=== PATIENT | female | born 1945 | race African-American/Black ===

== ENCOUNTER → 2017-11-09 | Outpatient (CLI) | payer OTHER ==
[~2017-11-09] MED LIST: AMLO10TA3 PO; ENAL10TA88 PO; GLC/500 PO; HYZ/10015 PO; MBC75 PO; SIMV-151 OP; TNR50 PO
[2017-11-09 17:25] LABS: ALBUMIN 3.8 gm/dl (3.4-5.0); ALKALINE PHOSPHATASE 70 U/L (45-117); ALT/SGPT 15 U/L (12-78); AST/SGOT 21 U/L (15-37); BLOOD UREA NITROGEN 14 mg/dl (7-18); CALCIUM 8.8 mg/dl (8.5-10.1); CARBON DIOXIDE 27 mmol/L (21-32); CHOLESTEROL 138 mg/dl (0-200); CREATININE 0.69 mg/dl (0.60-1.20); GLUCOSE 78 mg/dl (70-99); LDL CHOLESTEROL CALCULATED 61 mg/dl; POTASSIUM 3.3 mmol/L (3.5-5.1); SODIUM 139 mmol/L (136-145); TOTAL PROTEIN 7.4 gm/dl (6.4-8.2)
[2017-11-09 20:01] LABS: BASO % 0.2 %; BASO ABS # 0.01 K/uL (0-0.2); EOS % 2.9 %; EOS ABS # 0.16 K/uL (0-0.5); HEMOGLOBIN 11.3 g/dL (12.0-16.0); IG# 0.01 K/uL (0.00-0.02); LYMPH % 29.7 %; LYMPH ABS # 1.63 K/uL (1.2-3.4); MEAN CELL VOLUME 92.6 fL (80-100); MEAN CORPUSCULAR HEMOGLOBIN 29.9 pg (25-34); MEAN CORPUSCULAR HGB CONC 32.3 g/dl (32-36); MONO % 6.9 %; MONO ABS # 0.38 K/uL (0.11-0.59); NEUT % 60.1 %; PLATELET COUNT 195 K/uL (130-400); RED CELL DISTRIBUTION WIDTH SD 46.8 fL (36.4-46.3); WHITE BLOOD COUNT 5.49 K/uL (4.8-10.8)
[2017-11-10 06:43] LABS: HEMOGLOBIN A1C 6.1 % (4.5-5.6)
== END | disposition home or self-care (01) ==
LOC: C.LABBC 14:38
PROVIDERS: ATTEND Physician Assistant Medical
DX: M19.90 Unspecified osteoarthritis, unspecified site (principal); E11.9 Type 2 diabetes mellitus without complications; E78.5 Hyperlipidemia, unspecified; I10 Essential (primary) hypertension

== ENCOUNTER → 2017-11-15 | Outpatient (CLI) | payer OTHER ==
--- NOTE | 2017-11-15 16:01 | DIAGNOSTIC IMAGING REPORT ---
SOFT TISS HEAD/NECK-THYROID CLINICAL HISTORY: 72 years-old Female with NECK PAIN. Acute bilateral neck pain COMPARISON: None available TECHNIQUE: Multiple real time sonographic images of the thyroid were obtained accessing bradford scale appearance and color doppler flow. FINDINGS: MEASUREMENTS: Right lobe: 4.9 x 1.6 x 2.2 cm Left lobe: 5.6 x 1.4 x 2.2 cm Isthmus: 0.4 cm PARENCHYMA: The thyroid parenchymal echotexture is diffusely heterogeneous. NODULES: Multiple thyroid nodules are seen bilaterally in addition to suggest a colloid cysts. Spongiform circumscribed ovoid nodule of the lower pole right thyroid measures up to 1.2 x 1.2 x 1.1 cm. Hypoechoic circumscribed solid nodule of the mid pole left thyroid measures 0.9 x 0.6 x 1.0 cm. No focal abnormality seen within the area of clinical concern about the right neck. IMPRESSION: Multinodular thyroid and colloid cysts without any nodules meeting diagnostic criteria for tissue sampling. Continued follow-up recommended. The above report was generated using voice recognition software. It may contain grammatical, syntax or spelling errors. Electronically signed by: Cesar Aguilar M.D. 11/15/2017 4:00 PM Dictated Date/Time: 11/15/2017 3:53 PM
== END | disposition home or self-care (01) ==
LOC: C.ULTRBC 15:23
PROVIDERS: ATTEND Physician Assistant Medical
DX: E04.2 Nontoxic multinodular goiter (principal); M54.2 Cervicalgia

== ENCOUNTER 2019-12-03 05:03 | Observation (INO) ==
--- NOTE | 2019-11-04 16:28 | PAT Medication Instructions ---
Medication Instructions Date of Service November 04, 2019 Home Medications Medication Instructions Recorded simvastatin 20 mg tablet 20 mg PO HS #90 tab 04/16/19 enalapril maleate 10 mg tablet 10 mg PO BID #180 tab 07/16/19 aspirin 81 mg tablet,delayed release 81 mg PO PM metformin 500 mg tablet 500 mg PO TID woehmlep-rum-iesng acid 0.4 mg-lycopene 300 mcg-lutein 250 mcg tablet 1 tab PO QAM simvastatin 20 mg tablet 20 mg PO HS enalapril maleate 10 mg tablet 10 mg PO BID amlodipine 10 mg PO QAM atenolol-chlorthalidone 1 tab PO QAM STOP taking 2 weeks before surgery If surgery is within 2 weeks, stop taking as soon as possible. lvouazet-exm-shgsf acid 0.4 mg-lycopene 300 mcg-lutein 250 mcg tablet 1 tab PO QAM DO NOT take the morning of surgery metformin 500 mg tablet 500 mg PO TID enalapril maleate 10 mg tablet 10 mg PO BID Take morning of surgery With a small sip of water, OTHERWISE NOTHING TO EAT OR DRINK AFTER MIDNIGHT: amlodipine 10 mg PO QAM atenolol-chlorthalidone 1 tab PO QAM Take evening before surgery aspirin 81 mg tablet,delayed release 81 mg PO PM metformin 500 mg tablet 500 mg PO TID simvastatin 20 mg tablet 20 mg PO HS enalapril maleate 10 mg tablet 10 mg PO BID Other Notes If you have any questions please call us at [phone] or [phone] or [phone] or [phone]
--- NOTE | 2019-11-05 08:58 | Anesthesiology Consultation ---
Date of Service November 05, 2019 Assessment & Plan (1) Encounter for pre-operative examination: COVID Status: As of 11/04 assessment, patient denies travel to endemic area, known exposure/sick contacts, or symptoms of COVID19. Patient instructed to follow strict social distancing guidelines, wear a mask in public and avoid travel for 14 days prior to surgery. Preoperative COVID19 testing to be completed prior to surgery (11/27). Patient made aware to self-isolate as much as possible between COVID testing and surgery. Patient noted to be in new-onset Afib at [facility]. Rate controlled, patient taking ASA 81mg. Patient asymptomatic. Spoke to PCP office, they can see her at 1215 today. Patient amenable to this plan (she and her daughter did not want to go to the ER). EKG done at PCP office reportedly showed possible Wenkebach rhythm. Patient referred to cardiology (per office note from Ainsley Asif PA-C). Surgeon's office notified of this. Chart Review Chart Review: Acceptable Risk for Surgery (pending cardiology follow-up for new onset arrhythmia) and Patient seen in Pre Admission Testing Teaching & Discussion Instructed NPO after midnight before surgery, except medications with 15 cc of water. Medication instructions provided according to the [facility] guidelines. History Surgery Operation Date: 12/03/19 07:00 Proposed Procedures p Right Total Knee Arthroplasty - William Woodson MD Height/Weight Height: 5 ft 2 in Weight: 89 kg Allergies Allergy/AdvReac Type Severity Reaction Status Date / Time No Known Drug Allergies Allergy Unknown NONE Unverified 11/05/19 12:27 Medications Home Medications Medication Instructions Recorded Confirmed Last Taken aspirin 81 mg tablet,delayed 81 mg PO PM tab 03/11/19 11/05/19 Unknown release metformin 500 mg tablet 500 mg PO TID tab 03/11/19 11/05/19 Unknown ijzmtlat-chx-itagh acid 0.4 1 tab PO QAM 03/15/19 11/05/19 Unknown mg-lycopene 300 mcg-lutein 250 mcg tablet simvastatin 20 mg tablet 20 mg PO HS #90 tab 04/16/19 11/05/19 Unknown enalapril maleate 10 mg tablet 10 mg PO BID #180 tab 07/16/19 11/05/19 Unknown amlodipine 10 mg PO QAM 10/29/19 11/05/19 Unknown atenolol-chlorthalidone 1 tab PO QAM 10/29/19 11/05/19 Unknown Past Medical History Medical History (Updated 11/05/19 @ 16:18 by Evan Murrieta) Arrhythmia Atrial fibrillation, new onset, noted on pre-op EKG at [facility]. Rate controlled, pt asymptomatic and on ASA 81mg and BB chronically. Arranged for pt to be seen at PCP office same-day (11/04). EKG done at PCP office showing possible Wenchebach rhythm. Referred to cardio. Carpal tunnel syndrome Chronic anemia Diabetes mellitus, type 2 Gout Hearing deficit Hyperlipidemia Hypertension Osteoarthritis Thyroid nodule just monitoring Exercise / Class Metabolic Activity III < 4 Walking/Shop/Light housework (Does not do stairs, denies CP or SOB with ambulation, using cane) Past Family History Family History Mother Diabetes Hypertension Kidney disease Father Hypertension Kidney stones Stomach cancer Myocardial infarction Aunt Myocardial infarction Denies family history of Ovarian cancer Breast cancer Lung cancer Past Surgical History Surgical History History of colonoscopy History of hernia repair Past Anesthesia History No Hx of Anesthesia Complications and No Family Hx of Anesthesia Complications History of PONV No Hx of PONV and Hx of Motion Sickness Social History Smoking Status: Never smoker Do You Dip or Chew Tobacco: No Hx Alcohol Use: No Hx Substance Use: No substance use type: does not use Review of Systems Pt denies any recent chest pain, shortness of breath, palpitations, cough, fever or URI. Physical Exam Vital Signs BP: 121/77 P: 69bpm SPO2: 97% RA T: 98.5 F R: 16 ENMT Mouth: + dentures (partial lower); no chipped teeth and no loose teeth Thyromental Distance: > or= 3.5 Finger Breadths (4) Mallampati Class: II Neck normal visual inspection; neck extension not limited Respiratory normal respiratory effort Auscultation: lungs clear to auscultation bilaterally Cardiovascular Rate/Rhythm: regular rate; + abnormal rhythm (irregularly irregular) Heart Sounds: no murmur Vessels: no carotid bruit Extremities: + edema (mild non-pitting, pt reports at baseline) Testing Laboratory Results 11/05/19 09:30 11/05/19 09:30 PT 10.9 Seconds (9.0-12.0) 11/05/19 09:30 INR 1.0 (0.9-1.1) 11/05/19 09:30 APTT 27.3 Seconds (21.0-31.0) 11/05/19 09:30 Hemoglobin A1c 5.7 % (4.5-5.6) H 11/05/19 09:30 Blood Type O Positive 11/05/19 09:30 Antibody Screen NEGATIVE 11/05/19 09:30 Chronic anemia, baseline 10-11. Electrocardiogram Date: 11/05/19 Findings: + AFIB @ (73bpm with occ aberrant conduction) NSTWA. Chest X-Ray Date: 11/05/19 Findings: + NAD
--- NOTE | 2019-11-05 10:16 | XRay Report ---
XR chest Pre-admission PA/Lat CLINICAL HISTORY: pat COMPARISON STUDY: No previous studies for comparison. FINDINGS: The bones soft tissues and hemidiaphragms are normal. The cardiomediastinal silhouette is n ormal. The lungs are clear. The pulmonary vasculature is normal. IMPRESSION: Negative chest. ACT 112: Negative or not required by law. The above report was generated using voice recognition software. It may contain grammatical, syntax or spelling errors. Electronically signed by: Jorge A Morris M.D. 11/05/2019 10:15 AM
[2019-11-05 11:10] LABS: Basophils # (auto) 0.02 K/uL (0-0.2); Basophils % (auto) 0.5 %; Eosinophils # (auto) 0.17 K/uL (0-0.5); Eosinophils % (auto) 3.9 %; Hematocrit (blood only) 32.9 % (37-47); Hemoglobin 10.4 g/dL (12.0-16.0); Immature Granulocytes # (auto) 0.01 K/uL (0.00-0.02); Immature Granulocytes % (auto) 0.2 %; Lymphocytes # (auto) 0.99 K/uL (1.2-3.4); Lymphocytes % (auto) 22.6 %; Mean Corpuscular Hemoglobin 29.5 pg (25-34); Mean Corpuscular Hgb Conc 31.6 g/dL (32-36); Mean Corpuscular Volume 93.2 fL (80-100); Monocytes # (auto) 0.48 K/uL (0.11-0.59); Neutrophils # (auto) 2.71 K/uL (1.4-6.5); Neutrophils % (auto) 61.8 %; Platelet Count 228 K/uL (130-400); RDW Coefficient of Variation 14.5 % (11.5-14.5); RDW Standard Deviation 48.8 fL (36.4-46.3); Red Blood Count 3.53 M/uL (4.2-5.4); White Blood Count 4.38 K/uL (4.8-10.8)
[2019-11-05 11:18] LABS: BUN Creatinine Ratio 26.3 (10-20); Calcium 9.4 mg/dl (8.5-10.1); Creatinine Clr Calc Pharmacy 58.6 ml/min; Est GFR (African American) 76.6; Est GFR (Non-African American) 66.1; Partial Thromboplastin Time 27.3 Seconds (21.0-31.0); Potassium 3.8 mmol/L (3.5-5.1); Prothrombin Time 10.9 Seconds (9.0-12.0)
[2019-11-05 11:54] LABS: Estimated Average Glucose 117 mg/dl; Hemoglobin A1C 5.7 % (4.5-5.6)
--- NOTE | 2019-11-05 15:35 | Electrocardiogram Report ---
Test Reason : Blood Pressure : / mmHG Vent. Rate : 073 BPM Atrial Rate : 073 BPM P-R Int : 000 ms QRS Dur : 100 ms QT Int : 390 ms P-R-T Axes : 000 060 -49 degrees QTc Int : 429 ms Atrial fibrillation with occasional aberrant conduction Nonspecific T wave abnormality Abnormal ECG No previous ECGs available Confirmed by Aldair Cardozo ([id number]) on 11/05/2019 3:34:48 PM Referred By: William Woodson Confirmed By:Jimmy Cardozo
--- NOTE | 2019-11-30 09:50 | History and Physical Report ---
DATE OF ADMISSION: 12/03/2019 CHIEF COMPLAINT: Right knee pain, discomfort and instability. HISTORY OF PRESENT ILLNESS: The patient is a 74-year-old black female from [place], who presents for surgical treatment of her right knee. She has got about a 15-year history of gradually increasing right knee pain, discomfort and deformity and instability. She has been through extensive conservative treatment in the past which has become less successful. She has been using a cane to get around due to pain as well as instability issues. Her knee hurts all the time. She can walk barely a block. She would like to consider and have her knee replaced. Of note, in her preoperative workup, she was in AFib. She underwent a cardiac evaluation with a dobutamine stress echo which was negative. They are recommending rate controlled management of her AFib PAST MEDICAL HISTORY: 1. Diabetes. 2. Elevated cholesterol. 3. Hypertension. 4. Hiatal hernia. 5. Obesity with BMI of 36. 6. There is atrial fibrillation, new onset. PAST SURGICAL HISTORY: Include hernia repair. ALLERGIES: None. CURRENT MEDICINES: Include: 1. Amlodipine 10 mg a day. 2. Eliquis 5 mg twice a day. 3. Aspirin 81 mg a day. 4. Atenolol/chlorthalidone. 5. Enalapril. 6. Metformin. 7. Multivitamin. 8. Simvastatin. SOCIAL HISTORY: A 74-year-old female. She is moved from [place] about 12 years ago. Four children. Does not drink. Does not smoke. FAMILY HISTORY: Significant for diabetes and prostate cancer. REVIEW OF SYSTEMS: Significant for diabetes. It is pretty well controlled with hemoglobin A1c of 5.7. Denies any chest pain or shortness of breath. No history of DVT or PE. No known bleeding problems. No dysuria. PHYSICAL EXAMINATION: GENERAL: Shows a pleasant elderly female. Looks to be in reasonably good health. HEENT: Benign. NECK: Supple, no lymphadenopathy. LUNGS: Clear to auscultation. HEART: Has a regular rate and rhythm. ABDOMEN: Soft, nontender, nondistended. EXTREMITIES: Grossly neurovascularly intact except as follows. Examination of the right knee reveals the patient walks with use of a cane. She walks with a fairly slow gait and a significant valgus alignment to her knee, which is increased with weightbearing. Range of motion is about 5 degrees, show full extension to 110 degrees of flexion. There is no instability. No pain with hip motion. X-RAYS: X-rays of the right knee from previous are reviewed. Shows advanced right knee DJD. She has got complete loss of her lateral joint space. She has got diffuse osteopenia. She has got subchondral sclerosis. ASSESSMENT: A 74-year-old female diabetic patient with multiple medical comorbidities including diabetes, hypertension, elevated cholesterol, mild obesity, new onset atrial fibrillation rate controlled with advanced right knee degenerative joint disease. She has failed conservative treatment and markedly limited by her disease and would like to have this fixed. PLAN: We are going to take her to the operating room and do right total knee replacement. The risks and benefits of this procedure were explained to the patient including but not limited to DVT, PE, , infection, neurological injury, vascular injury, bleeding problem, pain, limited range of motion, stiffness, failure to relieve her symptoms, incomplete relief of symptoms, need for further surgery in future, fracture, leg length inequality, nerve palsy, and persistent pain. The patient understands and desires to proceed. Informed consent was obtained. She has been seen by cardiology and evaluated and cleared. She had negative dobutamine stress echo. Her atrial fibrillation is on rate control and she is on Eliquis. She knows to stop her Eliquis 3 days preop. We will hold the metformin the morning of surgery. She should take her atenolol. She is planning to be discharged to home using [facility] home health program and some family and friends.
[2019-12-03] MEDS ORDERED: LR 500ML BOLUS, THEN 15ML/HR IV SCH (06:00)
[2019-12-03] MEDS ORDERED: FAMOTIDINE 20 MG TAB PO SCH (06:00)
[2019-12-03] MEDS ORDERED: METOCLOPRAMIDE HCL 10 MG TABLET PO SCH (06:00)
[2019-12-03] MEDS ORDERED: BUPIVACAINE LIPOSOME/PF 266 MG, BUPIVACAINE/EPINEPHRINE 50 ML, SODIUM CHLORIDE 0.9% 30 ... INFIL SCH (06:00)
[2019-12-03] MEDS ORDERED: TRANEXAMIC ACID 1,000 MG **IV Pre-op IV SCH (06:00)
[2019-12-03] MEDS ORDERED: ACETAMINOPHEN 500 MG TAB PO SCH (06:00)
[2019-12-03] MEDS ORDERED: CEFAZOLIN 2000MG 2,000 MG/15 ML SYR IV SCH (06:00)
[2019-12-03] MEDS ORDERED: LR 60ML/HR IV SCH (06:00)
[2019-12-03] MEDS ORDERED: GABAPENTIN 300 MG CAP PO SCH (06:00)
[2019-12-03] MEDS ORDERED: EPINEPHrine INJ 1 MG/ML AMP ONE (06:20)
[2019-12-03] MEDS ORDERED: ROPIVACAINE 0.5% 5 MG/ML 30 ML VIAL ONE (06:20)
[2019-12-03] MEDS ORDERED: BUPIVACAINE 0.5 % 5 MG/1 ML PF 10ML VIAL ONE (06:20)
[2019-12-03] MEDS ORDERED: BUPIVACAINE/EPINEPHRINE 0.25% 1:200,000 30 ML VIAL ONE (06:35)
[2019-12-03] MEDS ORDERED: BUPIVACAINE LIPOSOME 1.3% 266 MG/20 ML VIAL ONE (06:36)
[2019-12-03] MEDS ORDERED: SODIUM CHLORIDE 0.9% PF 50 ML VIAL ONE (06:36)
[2019-12-03] MEDS ORDERED: BACITRACIN INJ 50,000 UNIT VIAL ONE (06:36)
[2019-12-03] MEDS ORDERED: PROPOFOL IV EMULSION 10 MG/ML 20 ML VIAL IV ONE ×2 (06:42→07:37)
[2019-12-03] MEDS ORDERED: LIDOCAINE HCL 2% 2 ML VIAL/AMP(20MG/ML) INFIL ONE (06:42)
[2019-12-03] MEDS ORDERED: MIDAZOLAM HCL 1 MG/ML 2ML VIAL ONE (06:43)
[2019-12-03] MEDS ORDERED: fentaNYL citrate 100 MCG/2 ML VIAL ONE (06:43)
--- NOTE | 2019-12-03 06:45 | History & Physical Bridge Note ---
Date of Service December 03, 2019 History & Physical Bridge Note I have examined the patient, reviewed the History & Physical and in the interval since the performance of the History & Physical I have noted the following changes of clinical significance: no changes noted
[2019-12-03] MEDS ORDERED: fentaNYL citrate 100 MCG/2 ML VIAL IV PRN (06:49)
[2019-12-03] MEDS ORDERED: HYDROmorphone INJ 1 MG/ML SYRINGE IV PRN (06:49)
[2019-12-03] MEDS ORDERED: ATROPINE SULFATE 0.1 MG/ML 10ML SYR IV PRN (06:49)
[2019-12-03] MEDS ORDERED: PHENYLEPHRINE 100MCG/ML 5ML SYR IV PRN (06:49)
[2019-12-03] MEDS ORDERED: LABETALOL HCL IV 5 MG/ML 20ML IV PRN (06:49)
[2019-12-03] MEDS ORDERED: MEPERIDINE HCL 25 MG/ML CARP/VIAL IV PRN (06:49)
[2019-12-03] MEDS ORDERED: ePHEDrine sulfate 50 MG/ML AMP IV PRN (06:49)
[2019-12-03] MEDS ORDERED: ONDANSETRON INJ 2 MG/ML 2 ML VIAL IV PRN ×2 (06:49→10:47)
[2019-12-03] MEDS ORDERED: ONDANSETRON INJ 2 MG/ML 2 ML VIAL ONE (07:20)
--- NOTE | 2019-12-03 09:21 | Post Operative Brief Note ---
PG Immediate Post Op with CF Date of Surgery December 03, 2019 Pre & Post Diagnosis Operation Date: 12/03/19 07:00 Pre-Op Diagnosis: Right Knee Degenerative Joint Disease, Knee Pain Post-Op Diagnosis: Right Knee Degenerative Joint Disease, Knee Pain I identified the patient and participated in the time-out.: Yes Procedure Operation Date: 12/03/19 07:00 Actual Procedures p Right Total Knee Arthroplasty(Right) - William Woodson MD Surgeon William Woodson MD Oral Surgeon Shahid Lester, PAC Estimated Blood Loss 50 Findings Consistent with Post-Op Diagnosis Fluids 1000 cc Specimens Specimen Description: Permanent specimen A: right knee bone and tissue Drains Ryan Catheter (16fr ryan catheter placed without difficulty, ryan demonstrates clear yellow urine. Output measured and recorded by anesthesia.) Anesthesia Type Spinal MAC Complications none Disposition Accompanied Patient To Recovery: Yes Disposition: Recovery Room
--- NOTE | 2019-12-03 09:47 | Operative Report ---
Post Operative Report Pre & Post Diagnosis Operation Date: 12/03/19 07:00 Pre-Op Diagnosis: Right Knee Degenerative Joint Disease, Knee Pain Post-Op Diagnosis: Right Knee Degenerative Joint Disease, Knee Pain I identified the patient and participated in the time-out.: Yes Procedure Operation Date: 12/03/19 07:00 Actual Procedures p Right Total Knee Arthroplasty(Right) - William Woodson MD Surgeon William Woodson MD Assembly Line Upholsterer Shahid Lester, PAC Estimated Blood Loss 50 Findings Consistent with Post-Op Diagnosis Operative findings revealed advanced right knee DJD with extensive grade 4 ctby-ke-cdch disease in all 3 compartments. She has severe valgus deformity to her knee with extensive wear of the lateral tibial plateau. Moderate-sized joint effusion. Diffuse osteopenia. Fluids 1000 cc. Specimens Right knee sent for pathology. Drains None. Anesthesia Type Spinal MAC Complications none Disposition Disposition: Recovery Room Indications Patient is a 74-year-old female who is had about a 10 to 15-year history of progressively increasing right knee pain discomfort deformity. She been through extensive conservative treatment without adequate relief over the past 10 years. She has having difficulty walking at all. X-rays show advanced right knee DJD. She elected proceed with surgical treatment. Description of Procedure Operative implants consist of: 1. Biomet Vanguard size 65 right posterior by femoral component. 2. Biomet size 71 SS K tibial tray with an 80 x 10 mm stem. 3. 16 mm Po stabilized polyethylene plus insert. 4. 31 x 8 all poly-patella. Patient was taken to the operating identified placed on the operating table supine position protectors were properly padded IV antibiotics arrived by anesthesia team. Spinal anesthetic been implemented holding area. Thakur catheter was placed in sterile fashion. Right factor was then placed in the right lower extremities and prepped and draped in usual sterile fashion. Nupathe right leg was elevated exsanguinated with use of an Esmarch interspace at 300 mmHg. An anterior part of the right knee was informed to longitudinal incision centered over the patella. Sharp dissection was got through subcutaneous tissue down to level the extensor mechanism. A medial parapatellar arthrotomy incision was made. Some subperiosteal dissection was carried out medially. The fat pad was dissected beneath patella tendon. The lateral patellofemoral ligament was released. Patella was subluxated laterally and the knee was flexed. The osteophytes were taken off the distal femur. The ACL and PCL were then released in the distal femur the tibia subluxate anteriorly. The external tibial alignment jig was then placed in the interface the tibia and adjusted 12 mm medially. Proximal tibial cut was made essentially flush with the most deficient aspect of the lateral tibial plateau. The tibia was then sized to a size 71. Attention drawn the femur. The distal femur 7 the sharp drill bit intramedullary canal was suction. A right 5 degree valgus cutting guide was placed but this femoral cutting block was pinned in place. The distal femoral cut was made to take an additional 3 mm of bone off distal femur. The knee was brought out in extension. I then did release the IT band in the posterior lateral capsule in order to equalize the extension gap. Great care was taken throughout the procedure protect the peroneal nerve at all times. The knee was then flexed. The knee was then sized to a size 65. The AP cutting block was pinned parallel to the epicondylar axis which was 5 degrees of external rotation. Anterior cut, anterior chamfer, posterior cut, posterior chamfer cuts were made. Box cutting guide was placed in just slight lateral and the box cut was made. The knee was flexed. The remnants of the medial lateral menisci were excised. The osteophytes were taken off the posterior aspect of the femur. I did release the popliteus as well in order to equalize the flexion gap. Once again great care was taken to protect the peroneal nerve at all times. The femoral component was then placed. The tibial tray was pinned in maximum external rotation and the drill was used to enter the tibial canal. Then reamed up to a size 10 and 10 reamer. I then used the punch for the SSK stem. The trial implant was assembled in place. It fit nicely. I then trialed the knee and the 16mm insert fit most appropriately. She did have quite a bit of laxity in pretty poor quality tissue so I did use a PS plus insert in order to maximize her stability. We also placed the stem in the tibia as a result of this need for increased ability and her diffuse osteope madai. Attention then drawn the patella. Patella cleaned of all soft tissues. Patella thickness measured 23 mm in thickness was cut down to 14. Was sized to a size 31 patella. Locals were drilled for 31 patella. Lateral osteophyte is moved. Patella button was placed. Knee was taken through range of motion patella tracked nicely with no thumbs test. Attention drawn to place the permanent components. All trial components were removed. Bone plug was placed in the disc femur limit blood loss put a double batch Palacos G cement was mixed. A Biomet Vanguard size 65 right posterior by femoral component, a size 71 SS K tray with a 10 x 80 mm extension was then placed followed by a 60 mm PS plus insert and a 31 x 8 all poly-patella. We did cement the entire tibial stem. The knee was brought out into full extension until cement hardened. Final cement check was then performed. Pericapsular tissues were injected with total 100 cc of combination of 20 cc of Exparel, 30 cc of normal saline, 50 cc of quarter percent Marcaine with epinephrine. Patient did receive 1 g tranexamic acid preoperatively. The tourniquet was then let down for final tourniquet time 70 minutes. Hemostasis a ssured use electrocautery. The wound was once again irrigated. Extensor mechanism closed with combination 1 PDS suture #1 Vicryl suture in [id number] fashion. Extensor mechanism checked found to be intact and subcutaneous tissue then closed with 2 Dexon suture in a buried interrupted fashion skin was closed skin robin. Leg was then cleaned dried and sterile dressed composed Xeroform, 4 x 4's, sterile cast padding, Dave bandage were applied. Patient then transferred to the recovery room in stable condition. Patient tolerated procedure well and there were no complications. Jesus Brantley, my physician transition assistant, was present for the entire procedure. His presence was essential and required for a proper positioning, prepping and draping, surgical exposure, performing the technical aspects of the operation, placing the implants, closing the wound, and placing a sterile bandage. I attest to the content of the Intraoperative Record and any orders documented therein. Any exceptions are noted below.
--- NOTE | 2019-12-03 09:55 | XRay Report ---
RIGHT KNEE 2 VIEWS History: Right total knee arthroplasty. Degenerative arthritis. Postop. FINDINGS: The patient is status post a right total knee arthroplasty. The hardware is intact. No frac ture or dislocation. Skin robin are in place. IMPRESSION: Right total knee arthroplasty. No evidence for hardware complication. ACT 112: Negative or not required by law. Electronically signed by: Heraclio Willson M.D. 12/03/2019 9:54 AM
--- NOTE | 2019-12-03 10:19 | Anesthesiology Progress Note ---
Date of Service December 03, 2019 Anesthesia Post Procedure Vital Signs Vital Signs: Temp Pulse Pulse Resp BP Pulse Ox 12/03/19 10:00 36.3 C L 59 L 13 125/60 98 12/03/19 09:50 61 14 132/56 L 95 12/03/19 09:40 55 L 13 129/56 L 100 12/03/19 09:30 67 14 131/71 99 12/03/19 09:22 36.5 C 62 16 116/60 100 12/03/19 06:30 62 20 156/66 H 94 12/03/19 05:50 36.5 C 61 20 143/70 H 95 Pain Intensity Right Knee: Pain Intensity: 1 Transfer of Care Handoff Completed per policy Notes Mental Status: alert / awake / arousable Patient Amnestic to Procedure: Yes Nausea / Vomiting: adequately controlled Pain: adequately controlled Airway Patency, RR, SpO2: stable & adequate BP & HR: stable & adequate Hydration State: stable & adequate Neuraxial Anesthesia: was administered and sensory block is resolving Anesthetic Complications: no major complications apparent and Pt Satisfied with anesthetic care
[2019-12-03] MEDS ORDERED: MAGNESIUM HYDROXIDE SUSP 30 ML UDC PO PRN (10:47)
[2019-12-03] MEDS ORDERED: NALOXONE HCL 0.4 MG/1 ML VIAL/CARP IV PRN (10:47)
[2019-12-03] MEDS ORDERED: HYDROmorphone INJ 0.5 MG/0.5 ML SYR IV PRN (10:47)
[2019-12-03] MEDS ORDERED: ALUMINUM/MAGNESIUM SUSP 30 ML UDC PO PRN (10:47)
[2019-12-03] MEDS ORDERED: METOCLOPRAMIDE HCL INJ 5 MG/ML 2 ML VIAL IV PRN (10:47)
[2019-12-03] MEDS ORDERED: bisacodyL 10 MG SUPP PR PRN (10:47)
[2019-12-03] MEDS ORDERED: PHARMACY GLYCEMIC MGMT CONSULT PRN (11:11)
[2019-12-03] MEDS ORDERED: GLUCAGON FOR INJ 1 MG VIAL IM PRN (11:30)
[2019-12-03] MEDS ORDERED: CARBOHYDRATES FOR HYPOGLYCEMIA PO PRN ×2 (11:30→11:46)
[2019-12-03] MEDS ORDERED: GLUCOSE 10 TABS/TUBE PO PRN ×2 (11:30→11:46)
[2019-12-03] MEDS ORDERED: DEXTROSE 50% 50 ML SYRINGE IV PRN ×2 (11:30→11:46)
[2019-12-03] MEDS ORDERED: GLUCOSE 40% GEL 15 GM TUBE PO PRN ×2 (11:30→11:46)
--- NOTE | 2019-12-03 11:31 | Pharmacy Report ---
Glycemic Control Consultation - Date of Service December 03, 2019 - Scope Scope: Glycemic Pharmacist consulted for glycemic control and to write orders per [facility] inpatient glycemic control protocol. - Objective Weight: 89.7 kg Accuchecks BSG (last 24hrs): 12/03/19 12/03/19 05:39 09:44 POC Glucose 99 121 H HbA1c: Hemoglobin A1c 5.7 % (4.5-5.6) H 11/05/19 09:30 - Recent Pertinent Medications Outpatient Anti-diabetic Regimen: * Metformin 500 mg PO TID * A1c = 5.7 % on 11/05/19 Risk Factors for Insulin Resistance: * Steroids: none * Infection: Ancef 2 gm IV q8h x 2 doses post op * IVF: NS @ 100 ml/hr * Recent Surgery: POD 0 R TKA * Diet: T2DM - Assessment & Plan Assessment & Plan: ASSESSMENT: * 74 y/o F admitted for R TKA. Patient with Type 2 Diabetes managed at home on oral Metformin only. * Oral agents are not recommended for inpatient use d/t drug interactions, changing PO intake, and difficulty titrating for acute hyper/hypoglycemia. ADA recommends re-initiating outpatient oral agents 1-2 days prior to discharge if/when appropriate if they were held on admission. * Will hold oral agents for admission and utilize SQ basal bolus insulin regimen which is the recommended regimen for inpatient glycemic control. Will initiate weight based insulin dosing for insulin sabine patient using low stress protocol and titrate based on BSG trends. * Basal insulin is not needed in this patient based on A1c, pre-op BSGs of 99, then 121 today and minimal risk factors for insulin resistance such as no steroid use pre-op. PLAN FOR INPATIENT GLYCEMIC CONTROL: * Holding outpatient oral diabetes medications * Basal insulin- none * Bolus insulin * NovoLog per scale ACHS or Q6hrs while NPO * Goal Range: Low 110 mg/dL - High 140 mg/dL * Correction Factor: 30 mg/dL/unit * Nutritional / Prandial insulin per carb ratio of 1 unit per 10 grams CHO consumed * Please note that the plan above was derived based on current level of insulin resistance and hospital stress. These recommendations are appropriate for inpatient admission only. Plan of care upon discharge will need to be reassessed to avoid potential outpatient hypo/hyperglycemia. Thank you.
[2019-12-03] MEDS ORDERED: GLUCAGON FOR INJ 1 MG VIAL SQ PRN (11:46)
[2019-12-03] MEDS: KETOROLAC TROMETHAMINE 15 MG/ML VIAL IV SCH ×3 (12:17→23:27)
[2019-12-03] MEDS: SODIUM CHLORIDE 0.9% 1000ML 1,000 ML IV SCH ×2 (12:50→23:26)
[2019-12-03] MEDS: INSULIN ASPART 100 UNITS/ML 3 ML PEN SC SCH ×3 (12:51→21:52)
[2019-12-03] MEDS: ACETAMINOPHEN 500 MG TAB PO SCH ×2 (13:41→21:47)
[2019-12-03] MEDS: CEFAZOLIN 2000MG 2,000 MG/15 ML SYR IV SCH ×2 (13:57→23:27)
[2019-12-03] MEDS ORDERED: TRANEXAMIC ACID / 0.7% NACL 1,000 MG/100 ML BAG IV SCH (15:25)
[2019-12-03] MEDS: ASCORBIC ACID 500 MG TAB PO SCH (16:59)
[2019-12-03] MEDS: FERROUS GLUCONATE 324 MG TAB PO SCH (16:59)
[2019-12-03] MEDS: ASPIRIN 81 MG ECTAB PO SCH (21:47)
[2019-12-03] MEDS: DOCUSATE SODIUM 100 MG CAP PO SCH (21:47)
[2019-12-03] MEDS: SENNA 8.6 MG TAB PO SCH (21:47)
[2019-12-03] MEDS: SIMVASTATIN 20 MG TAB PO SCH (21:47)
[2019-12-03] MEDS: ENALAPRIL MALEATE 10 MG TAB PO SCH (21:47)
[2019-12-03] MEDS: TRAMADOL HCL 50 MG TABLET PO PRN (23:26)
[2019-12-04] MEDS: KETOROLAC TROMETHAMINE 15 MG/ML VIAL IV SCH (05:50)
[2019-12-04] MEDS: ACETAMINOPHEN 500 MG TAB PO SCH ×3 (05:50→23:00)
[2019-12-04 06:22] LABS: Hematocrit (blood only) 29.6 % (37-47); Hemoglobin 9.5 g/dL (12.0-16.0); Mean Corpuscular Hemoglobin 29.6 pg (25-34); Mean Corpuscular Hgb Conc 32.1 g/dL (32-36); Mean Corpuscular Volume 92.2 fL (80-100); Mean Platelet Volume 9.8 fL (7.4-10.4); Platelet Count 174 K/uL (130-400); RDW Coefficient of Variation 14.2 % (11.5-14.5); RDW Standard Deviation 47.7 fL (36.4-46.3); Red Blood Count 3.21 M/uL (4.2-5.4); White Blood Count 5.78 K/uL (4.8-10.8)
[2019-12-04 06:59] LABS: Calcium 7.8 mg/dl (8.5-10.1); Creatinine Clr Calc Pharmacy 64.9 ml/min; Est GFR (African American) 86.2; Est GFR (Non-African American) 74.4; Potassium 3.2 mmol/L (3.5-5.1)
[2019-12-04] MEDS: DOCUSATE SODIUM 100 MG CAP PO SCH ×2 (08:57→20:38)
[2019-12-04] MEDS: CHLORTHALIDONE 25 MG TAB PO SCH (08:57)
[2019-12-04] MEDS: FERROUS GLUCONATE 324 MG TAB PO SCH ×2 (08:57→17:59)
[2019-12-04] MEDS: CEROVITE ADV FORMULA TAB PO SCH (08:57)
[2019-12-04] MEDS: ENALAPRIL MALEATE 10 MG TAB PO SCH ×2 (08:58→20:38)
[2019-12-04] MEDS: AMLODIPINE BESYLATE 5 MG TAB PO SCH (08:58)
[2019-12-04] MEDS: APIXABAN 2.5 MG TAB PO SCH ×2 (08:58→20:38)
[2019-12-04] MEDS: ASCORBIC ACID 500 MG TAB PO SCH ×2 (08:58→17:58)
[2019-12-04] MEDS: ATENOLOL 50 MG TABLET PO SCH (08:58)
[2019-12-04] MEDS ORDERED: MULTIVITAMIN TAB PO SCH (09:00)
[2019-12-04] MEDS: INSULIN ASPART 100 UNITS/ML 3 ML PEN SC SCH ×5 (09:03→22:21)
--- NOTE | 2019-12-04 10:12 | Pharmacy Report ---
Glycemic Ortho Sign Off Note - Date of Service December 04, 2019 - Scope Glycemic Pharmacist consulted for glycemic control and to write orders per [facility] inpatient glycemic control protocol. - Objective Accuchecks BSG (last 24hrs):: 12/03/19 12/03/19 12/03/19 12:11 17:02 20:52 Glucose POC Glucose 100 H 102 H 146 H 12/04/19 12/04/19 06:09 08:25 Glucose 105 H POC Glucose 142 H HbA1c:: Hemoglobin A1c 5.7 % (4.5-5.6) H 11/05/19 09:30 - Assessment * Patient received total of 4 units of bolus Novolog insulin yesterday. Fasting BSG this AM was 105 which is within goal. * Pt is maintained on oral antidiabeticagent[s]as anoutpatient with excellent control per recent A1c of 5.7%. * Will resume oral Metformin home therapy with lunch today. * Appropriate to DC insulin and resume outpatient antidiabetic regimen at discharge * While inpatient, will continue with Novolog bolus with a loosened correction factor only and no carb ratio. * Goal is to maintain BSGs <200 mg/dl (ideally <150 mg/dl) to prevent post op complications - Plan For Inpatient Glycemic Control * Resumed home Metformin dose 500 mg PO TID starting with lunch today. * Bolus insulin: loosened CF and removed CR. * continue Novolog ACHS with CF of 35 to treat high BSG if needed. * Pharmacy has entered glycemic orders and is signing off of the glycemic consult. We will no longer be making adjustments to inpatient regimen. Please feel free to re-consult if needed. Thank you.
[2019-12-04] MEDS: TRAMADOL HCL 50 MG TABLET PO PRN ×2 (10:28→20:35)
[2019-12-04] MEDS ORDERED: POTASSIUM CHLORIDE 20 MEQ TABCR PO ONE ×2 (11:45→18:00)
[2019-12-04] MEDS: METFORMIN HCL 500 MG TAB PO SCH ×2 (12:36→17:58)
--- NOTE | 2019-12-04 12:39 | Progress Notes ---
DATE: 12/04/2019 SUBJECTIVE: A 74-year-old white female postop day 1 from a right knee replacement. She is doing pretty well. Had a good night. Pain has been very manageable. No chest pain or shortness of breath. Not feeling dizzy or lightheaded. OBJECTIVE: VITAL SIGNS: Temperature 36.6. Vital signs stable. GENERAL: Shows a pleasant elderly female. She is lying in bed, looks pretty comfortable. EXTREMITIES: Examination of the right leg reveals the leg to be well aligned. Dressing is clean, dry and intact. She can dorsiflex and plantarflex her foot appropriately. She is neurologically intact. LABORATORY DATA: Hemoglobin is 9.5. Hematocrit 29.6. Electrolytes are stable. Potassium is a little bit low at 3.2. ASSESSMENT: A 74-year-old white female postoperative day 1 from right knee replacement, doing pretty well. Pain has been controlled. She is a bit anemic, but asymptomatic. Potassium is low and we will supplement that. PLAN: 1. DVT prophylaxis including thigh-high TEDs, SCDs, and we will start her back on Eliquis at a prophylactic dose 24 hours postop. 2. PT/OT. Weight bear as tolerated. Right total knee protocol. 3. Pain control, doing well with current pain regimen. 4. Anemia. Will continue iron supplementation. 5. Hypokalemia. We will supplement her potassium today. 6. Disposition: She is planning to be discharged to home with some home health and her family's assistance.
[2019-12-04] MEDS: SENNA 8.6 MG TAB PO SCH (20:38)
[2019-12-04] MEDS: SIMVASTATIN 20 MG TAB PO SCH (20:38)
[2019-12-04] MEDS: ASPIRIN 81 MG ECTAB PO SCH (20:38)
[2019-12-05] MEDS: ACETAMINOPHEN 500 MG TAB PO SCH (05:44)
[2019-12-05 06:48] LABS: BUN Creatinine Ratio 20.8 (10-20); Calcium 8.3 mg/dl (8.5-10.1); Creatinine Clr Calc Pharmacy 73.3 ml/min; Est GFR (African American) 98.7; Est GFR (Non-African American) 85.2; Potassium 3.4 mmol/L (3.5-5.1)
[2019-12-05 07:27] VITALS: BP 117/78; TEMP 98.6; O2SAT 93
[2019-12-05] MEDS ORDERED: POTASSIUM CHLORIDE 20 MEQ TABCR PO ONE (07:28)
[2019-12-05 08:18] VITALS: PULSE 77
[2019-12-05] MEDS: CHLORTHALIDONE 25 MG TAB PO SCH (08:21)
[2019-12-05] MEDS: ATENOLOL 50 MG TABLET PO SCH (08:21)
[2019-12-05] MEDS: AMLODIPINE BESYLATE 5 MG TAB PO SCH (08:21)
[2019-12-05] MEDS: ENALAPRIL MALEATE 10 MG TAB PO SCH (08:21)
[2019-12-05] MEDS: FERROUS GLUCONATE 324 MG TAB PO SCH (08:22)
[2019-12-05] MEDS: CEROVITE ADV FORMULA TAB PO SCH (08:22)
[2019-12-05] MEDS: DOCUSATE SODIUM 100 MG CAP PO SCH (08:22)
[2019-12-05] MEDS: APIXABAN 2.5 MG TAB PO SCH (08:22)
[2019-12-05] MEDS: ASCORBIC ACID 500 MG TAB PO SCH (08:22)
[2019-12-05] MEDS: METFORMIN HCL 500 MG TAB PO SCH (08:23)
[2019-12-05] MEDS: INSULIN ASPART 100 UNITS/ML 3 ML PEN SC SCH (08:29)
--- NOTE | 2019-12-05 08:49 | Progress Notes ---
DATE: 12/05/2019 SUBJECTIVE: A 74-year-old white female postop day 2 from right knee replacement. She is doing pretty well. Had quite a bit of pain yesterday evening, but doing better this morning. No chest pain or shortness of breath. Not feeling dizzy or lightheaded. OBJECTIVE: VITAL SIGNS: Temperature 36.5. Vital signs stable. GENERAL: Shows a pleasant elderly female. She was walking around her room with her walker this morning when I visited her and doing pretty well. EXTREMITIES: Examination of the right leg reveals the leg to be well aligned. Dressing is clean, dry and intact. She can dorsiflex and plantarflex her foot appropriately. LABORATORY DATA: Potassium is improved at 3.4. ASSESSMENT: A 74-year-old white female postoperative day 2 from right knee replacement, doing reasonably well. Pain seems to be controlled. She is getting around reasonably well. PLAN: 1. DVT prophylaxis including thigh-high TEDs, SCDs, and back on her Eliquis. She will be on a prophylactic dose in the hospital and a therapeutic dose on discharge. 2. PT/OT. Weight bear as tolerated. Right total knee protocol. 3. Pain control, doing pretty well with current pain regimen. 4. Hypokalemia. Potassium is improved. We will continue to supplement this. 5. Disposition: Plan to discharge her home with some home health likely later today.
--- NOTE | 2019-12-17 11:47 | Discharge Summary ---
Date of Service December 05, 2019 Admission HPI Per Admitting Provider Patient is a 74 year old female who has had about a 10 to 15-year history of progressively increasing right knee pain discomfort deformity. She been through extensive conservative treatment without adequate relief over the past 10 years. She has having difficulty walking at all. X-rays show advanced right knee DJD. She elected proceed with surgical treatment. Admission Exam (Per Admitting) Constitutional WD/WN, vitals as above no acute distress ENMT external ear and nose normal, oropharynx normal Neck trachea midline, no thyromegaly normal visual inspection Respiratory normal respiratory effort, lungs clear to auscultation Cardiovascular Rate/Rhythm: regular rate and regular rhythm Gastrointestinal (Abdomen) Inspection/Auscultation: abdomen normal to inspection Percussion/Palpation: abdomen soft Musculoskeletal Pre-operatively right knee range of motion is 5-110 degrees. No instability. No pain with hip motion. She ambulates with a cane. Skin no rashes, warm and dry Psychiatric Orientation: alert and oriented x 3 Apperance: appropriately dressed Eye Contact: good eye contact Discharge Data Consultations 12/03/19 10:47 Consult Case Management - Discharge Planning Routine Procedures Performed Operation Date: 12/03/19 07:00 Actual Procedures p Right Total Knee Arthroplasty(Right) - William Woodson MD Hospital Course (1) History of arthroplasty of right knee: Wound was [facility] on December 03, 2019 to undergo a right total knee arthroplasty. Told procedure was taken to recover before being managed with orthopedic for. On the orthopedic floor she began with PT and OT. Postoperatively when she was doing pretty well and her pain was managed. She was continue work with PT and OT and was planning to go home with home care. She did have some anemia and hypokalemia which were treated with iron supplementation and potassium. She continued to improve and on postop day #2 she was discharged to home with home care after being cleared by physical therapy. Discharge Instructions 1. DVT prophylaxis including thigh-high TEDs, SCDs, and restarted Eliquis 2. PT/OT. Weight bear as tolerated. Right total knee protocol. 4. Anemia. Will continue iron supplementation. 5. Hypokalemia. We will supplement her potassium today. 6. Disposition: She is planning to be discharged to home with some home health and her family's assistance. Coding Level of Care Code D/C Day Management <30 mins Diagnoses History of arthroplasty of right knee Z96.651
== END 2019-12-05 10:30 | disposition home health service (06) ==
LOC: ASU 05:03 → 3E 05:03